=== PATIENT | female | born 1930 | race Caucasian/White ===

== ENCOUNTER 2017-01-01 12:16 | Day surgery (SDC) | payer MEDICARE ==
[2017-01-01] MEDS ORDERED: Acetaminophen 500 MG TAB PO SCH (12:45)
[2017-01-01] MEDS ORDERED: diphenhydrAMINE HCl 25 MG CAP PO SCH (12:45)
[2017-01-01] MEDS ORDERED: Sodium Chloride 0.9% 20 ML ONE (14:34)
[2017-01-01 19:10] VITALS: BP 152/67; TEMP 97.4
[2017-01-01 19:36] LABS: #Eosinphils 0.3 thou/uL (0.0-0.7); #Lymphocytes 1.4 thou/uL (1.20-3.40); #Monocytes 0.6 thou/uL (0.11-0.59); #Neutrophils 4.6 thou/uL (1.40-6.50); %Basophils 0.3 % (0.0-1.0); %Eosinophils 4.2 % (0.0-10.0); %Lymphocytes 19.8 % (21.0-51.0); %Monocytes 8.8 % (0.0-10.0); Hematocrit 34.1 % (36.0-47.0); Mean Platelet Volume 6.2 fL (7.4-10.4); Red Blood Cell (RBC) Count 4.02 mill/uL (4.20-5.40); White Blood Cell (WBC) Count 6.9 thou/uL (4.8-10.8)
[2017-01-01] MEDS ORDERED: FLU VACC TS2017-18 (>65YR) 0.5 ML SYRINGE IM ONE (21:00)
== END 2017-01-01 19:31 | disposition home or self-care (01) ==
LOC: ONC/OP 12:16
PROVIDERS: ATTEND Internal Medicine Hematology & Oncology
PROC: 30233N1 Transfusion of Nonautologous Red Blood Cells into Peripheral Vein, Percutaneous Approach (ICD-10-PCS; principal; 2017-01-01)
DX: D64.9 Anemia, unspecified (principal); D69.6 Thrombocytopenia, unspecified; I12.9 Hypertensive chronic kidney disease with stage 1 through stage 4 chronic kidney disease, or unspecified chronic kidney disease; N18.4 Chronic kidney disease, stage 4 (severe); Z95.828 Presence of other vascular implants and grafts
CPT/HCPCS: 36415; 36430; 85025; 86850; 86900; 86901; A4216; P9016

== ENCOUNTER 2017-03-14 13:18 | Inpatient (IN) | payer MEDICARE ==
[2017-03-14 14:08] LABS: #Eosinphils 0.1 thou/uL (0.0-0.7); #Monocytes 1.1 thou/uL (0.11-0.59); #Neutrophils 15.7 thou/uL (1.40-6.50); %Basophils 0.1 % (0.0-1.0); %Eosinophils 0.5 % (0.0-10.0); %Lymphocytes 5.7 % (21.0-51.0); %Monocytes 6.1 % (0.0-10.0); Hematocrit 32.3 % (36.0-47.0); Mean Platelet Volume 6.5 fL (7.4-10.4); Red Blood Cell (RBC) Count 3.61 mill/uL (4.20-5.40); White Blood Cell (WBC) Count 17.9 thou/uL (4.8-10.8)
[2017-03-14 14:25] LABS: Lactic Acid - Sepsis 2.4 mmol/L (0.5-2.2)
[2017-03-14 14:29] LABS: ALT (SGPT) 17 U/L (8-55); AST (SGOT) 33 U/L (5-34); Alkaline Phosphatase 77 U/L (40-150); Anion Gap 17 mmol/L (10-20); BUN (Urea Nitrogen) 64 mg/dL (9.8-20.1); Bilirubin, Total 0.4 mg/dL (0.2-1.2); Calc. Creatinine Clearance 0 mL/min (70-130); Carbon Dioxide 17 mmol/L (23-31); Chloride 101 mmol/L (98-107); Estimated GFR-MDRD 9; Globulin 4.9 g/dL (2.4-3.5)
[2017-03-14 14:58] LABS: Bilirubin Negative (Negative); Blood, Urine Large (Negative); Glucose, Urine (Dipstick) Negative (Negative); Ketone, Urine Negative (Negative); Nitrite Negative (Negative); Protein, Urine (Dipstick) 100 mg/dL (Neg-Trace); Urobilinogen 0.2 mg/dL (0.2-1.0)
[2017-03-14 15:00] LABS: Bacteria/HPF None Seen HPF (None Seen); Hyaline Casts/LPF 0-3 HYALINE CAST LPF (0-3 Hyaline); RBC/HPF 21-50 HPF (0-3); Squamous Epithelial None Seen HPF (0-3)
[2017-03-14] MEDS ORDERED: Cefepime 2 GM/10 ML SYR ONE (16:36)
[2017-03-14] MEDS ORDERED: cloNIDine 0.1 MG TAB PO PRN (18:29)
[2017-03-14] MEDS ORDERED: Ondansetron ODT 4 MG TAB PO PRN (18:29)
[2017-03-14] MEDS ORDERED: hydrALAZINE 20 MG/ML VIAL SLOW IVP PRN (18:29)
[2017-03-14] MEDS ORDERED: Ondansetron HCl/PF 4 MG/2 ML Vial IVP PRN (18:29)
[2017-03-14] MEDS ORDERED: Vancomycin HCl 1 GM in Premix Bag 1 BAG IVPB SCH (18:30)
--- NOTE | 2017-03-14 19:50 | HP ---
DATE OF ADMISSION: 03/14/2017 PRIMARY CARE PROVIDER: Mariola Francis MD CHIEF COMPLAINT: Urinary tract infection. HISTORY OF PRESENT ILLNESS: This is an 86-year-old female with a significant history of co tyler cancer nonoperatively managed, status post diverting colostomy. The patient was following up wit h her primary oncologist to assess for the need of Epogen when a screening. CBC showed an elevated w marciano count of 19,000. The patient also with a history of recurrent urinary tract infections with uri nalysis showing large leukocyte esterase and greater than 50 to too numerous to count wbc's per high power field. The patient apparently had recently finished a course of ciprofloxacin for pseudomonas urinary tract infection and has been progressively declining with general weakness and lethargy over the last 4-5 days according to the daughter. The patient was noted one urine culture on 02/16/2017 w as greater than 100,000 colonies of pseudomonas aeruginosa, pansensitive. The patient currently resi donaldo with her son in the [place] area, receiving some home health services. The patient is ambu latory with use of a rolling walker, but does need some assistance with meal preparation. The patien t is currently being followed by the Oncology Service for primary invasive adenocarcinoma of the colo n, nonoperatively managed. The patient denies any other change to her chronic medication regimen, si gnificant weight loss, nausea, vomiting, hematuria, or hematemesis. The patient denies any prominent fever, but the daughter reports some subjective fever complaints. No significant history of fall, u nilateral weakness, chest pain or shortness of breath. In the emergency room, the patient underwent general evaluation with urinalysis suspicious for infectious process. Patient received IV vancomycin , Levaquin, and cefepime as well as intravenous normal saline x1 liter. The patient was transferred to the medical floor for further evaluation. PAST MEDICAL HISTORY: 1. 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 2. Stage 4 chronic kidney disease. 3. Chronic anemia secondarily to #1. 4. History of bilateral hydronephrosis secondarily to #1. 5. History of right lower extremity DVT with prior IVC filter placement. 6. History of H. pylori gastritis. 7. Hypothyroidism. 8. History of moderate-protein malnutrition. 9. Deconditioning. PAST SURGICAL HISTORY: 1. Status post diverting colostomy. 2. Status post bilateral cataract removal. 3. Status post skin cancer removal. 4. Status post tonsillectomy. CURRENT MEDICATIONS: 1. Aspirin 325 mg 1 tab p.o. daily. 2. Epogen 7500 units subcutaneously q. 2 weeks. 3. DuoNeb 3 mL nebulized q.6 hours p.r.n. 4. Levothyroxine 25 mcg 1 tab p.o. daily. 5. Multivitamin 1 tab p.o. daily. ALLERGIES: No known drug allergies. FAMILY HISTORY: No inheritable diseases per patient report. SOCIAL HISTORY: Patient resides in [place], [place] with her son. Accompanied by her daughter i [facility]. No current alcohol, tobacco, or illicit drug use. REVIEW OF SYSTEMS: The following complete review of systems was negative, unless otherwise mentioned in the HPI or below: Constitutional: Weight loss or gain, ability to conduct usual activities. Sk in: Rash, itching. Eyes: Double vision, pain. ENT/Mouth: Nose bleeding, neck stiffness, pain, te nderness. Cardiovascular: Palpitations, dyspnea on exertion, orthopnea. Respiratory: Shortness of breath, wheezing, cough, hemoptysis, fever or night sweats. Gastrointestinal: Poor appetite, abdom inal pain, heartburn, nausea, vomiting, constipation, or diarrhea. Genitourinary: Urgency, frequenc y, dysuria, nocturia. Musculoskeletal: Pain, swelling. Neurologic/Psychiatric: Anxiety, depressio n. Allergy/Immunologic: Skin rash, bleeding tendency. PHYSICAL EXAMINATION: VITAL SIGNS: On admission, blood pressure 156/56, respiratory rate 23, temperature 98.1 degrees Fahr enheit, pulse 105, O2 saturation 100% on room air. GENERAL APPEARANCE: This is an 86-year-old female, alert and oriented x3, pleasant, conver elsi, in no acute distress. HEENT: Pupils are equal, round, and reactive to light and accommodation. Extraocular muscles are in tact. No scleral icterus, no conjunctival injection. Nares patent. OP is clear. Oral mucosa dry a ppearing. NECK: Supple. No cervical adenopathy, no thyromegaly, no carotid bruits, no JVD appreciated. Cervi art spine with full active and passive range of motion. CHEST: Lungs are clear to auscultation bilaterally. CARDIOVASCULAR: S1, S2 with a 2/6 systolic ejection murmur, loudest in the right upper sternal borde r. ABDOMEN: Rounded, soft with bowel sounds positive in all 4 quadrants. Colostomy bag in place. No p alpable mass. No rebound or guarding noted. EXTREMITIES: Warm and dry with fair turgor. No clubbing, cyanosis, or asymmetric edema appreciated. Pulses palpable distally at the dorsalis pedis, posterior tibial, and popliteal arteries bilaterall y. Capillary refill less than 2 seconds. NEUROLOGIC: Cranial nerves II through XII are grossly intact. No focal or lateralizing signs apprec iated. PERTINENT LABORATORY AND X-RAY FINDINGS: Sodium 131, potassium 3.9, chloride 101, CO2 of 17, BUN 64, creatinine 4.78 with estimated GFR of 9, glucose 191. Lactic acid level 2.4, calcium 10.0. LFTs wi thin normal limits. Albumin 3.1. CBC showed a white blood cell count of 17.9, hemoglobin 9.8, hemat ocrit 32.3, platelet count 426 with 88% neutrophilia. Urinalysis positive for protein, blood, and la rge leukocyte esterase. Urine microscopy shows 21-50 rbc's per high power field and 50 to too navin us to count wbc's per high power field. EKG dated 03/14/2017 by my interpretation shows sinus tachyc ardia with heart rates in the 110s. Normal R-wave progression noted in the precordial leads. Normal axis. Occasional PVC noted. No acute ST-T wave changes appreciated. ASSESSMENT AND PLAN: 1. Urinary tract infection with systemic inflammatory response syndrome. We will admit to medical f mena. Continue intravenous normal saline at 75 mL per hour. Continue cefepime 1 gram IV daily. Con tinue vancomycin 1 gram IV daily. Continue renal adjustment to all medications given patient's chron ic kidney disease. We will await final blood and urine culture results. 2. Acute kidney injury on chronic kidney disease, stage 4-5. Continue intravenous normal saline as outlined previously. Avoid nephrotoxic agents and contrast media. Repeat creatinine in the a.m. Co ntinue Meyer catheter. 3. Hyponatremia. Suspect secondary to #1. Continue intravenous normal saline as outlined previousl y. Repeat sodium level in the a.m. 4. Lactic acidosis. Mild and secondary to #1. Continue treatment as outlined in #1 and monitor cli nical response. 5. Chronic normocytic anemia. Stable currently. No current evidence to suggest acute blood loss. Repeat CBC in the a.m. 6. Invasive adenocarcinoma of the sigmoid colon. Nonoperative management per patient and family rep ort. Continue symptomatic and supportive care. 7. Hypothyroidism. Resume home regimen of levothyroxine 25 mcg p.o. daily. 8. Prophylaxis. Sequential compression devices while in bed. Pepcid 20 mg p.o. b.i.d. PT evaluati on in the a.m. 9. Code status is FULL. Surrogate medical decision maker is the patient's daughter.
[2017-03-14] MEDS: Sodium Chloride 0.9% 1,000 ML IV SCH (20:29)
[2017-03-14] MEDS: Famotidine 20 MG TAB PO SCH (20:30)
[2017-03-15 04:48] LABS: Hematocrit 29.9 % (36.0-47.0); Mean Platelet Volume 6.5 fL (7.4-10.4); Red Blood Cell (RBC) Count 3.34 mill/uL (4.20-5.40)
[2017-03-15 04:56] LABS: Anion Gap 12 mmol/L (10-20); BUN (Urea Nitrogen) 64 mg/dL (9.8-20.1); Calc. Creatinine Clearance 8 mL/min (70-130); Calcium 9.4 mg/dL (7.8-10.44); Carbon Dioxide 16 mmol/L (23-31); Chloride 106 mmol/L (98-107); Estimated GFR-MDRD 9
[2017-03-15 05:51] LABS: Band 2 % (5-11); Neutrophil 88 % (42-75)
[2017-03-15] MEDS: Levothyroxine Sodium 25 MCG TAB PO SCH (05:56)
[2017-03-15] MEDS ORDERED: FLU VACC TS2017-18 (>65YR) 0.5 ML SYRINGE IM ONE (09:00)
[2017-03-15] MEDS: Famotidine 20 MG TAB PO SCH ×2 (09:52→19:58)
[2017-03-15] MEDS: Sodium Chloride 0.9% 1,000 ML IV SCH (09:52)
[2017-03-15] MEDS: Multivitamin W/ Minerals 1 TAB PO SCH (09:52)
[2017-03-15] MEDS: Aspirin 325 MG TAB PO SCH (09:52)
--- NOTE | 2017-03-15 10:29 | CON ---
DATE OF CONSULTATION: 03/15/2017 REASON FOR CONSULTATION: Elevated creatinine. HISTORY OF PRESENT ILLNESS: This is a very pleasant 86-year-old female who presented to the hospital with a 2-3 day history of low grade fever and UTI and sepsis. The patient was hypertensive and star collins on IV fluids. Her baseline creatinine was in the 3s and increased to 4.83 yesterday from 2.85 in November. The patient denies any nausea, vomiting or chest pain. PAST MEDICAL HISTORY: Significant history of adenocarcinoma of the rectosigmoid, stage 4 chronic kid jarrod disease, acidosis, history of bilateral hydronephrosis, history of DVT, history of hypothyroidis m, history of diverting colostomy, cataract, cancer removal. HOME MEDICATIONS: List reviewed. HOSPITAL MEDICATIONS: Reviewed. ALLERGIES: Reviewed. FAMILY HISTORY: Negative for ESRD. SOCIAL HISTORY: No alcohol or drug use. REVIEW OF SYSTEMS: Fifteen point review of systems was performed and negative except positives noted above. GENERAL: Weakness- HEAD: Headache- NECK: No swelling or lumps. NOSE: No epistaxis or discharge. EYES: No diplopia or pain. RESPIRATORY: Dyspnea- CARDIOVASCULAR: Chest pain- GASTROINTESTINAL: Nausea- /SERVICE CREW LEADER: Hematuria- MUSCULOSKELETAL: No joint pain. NEUROPSYCHIATIC SYSTEMS: No suicidal ideation. No ideation. SKIN: Denies any rash or ulcer. CONSTITUTIONAL: No fever or chills. PHYSICAL EXAMINATION: GENERAL: Patient is awake, alert. VITAL SIGNS: Afebrile, breathing 16, pulse was 120, blood pressure 120/65. OBJECTIVE: See above. Awake, alert, in no acute distress. GENERAL APPEARANCE AND MENTAL STATUS: Fair. HEAD/NECK: Normocephalic. Atraumatic. EYES: EOMI. No deformity. EARS: Clear. No ulcers. NOSE: Intact. No lesions. MOUTH: Clear. No discharge. THROAT: Clear. No exudate. LUNGS: Clear. No crackles. CARDIAC: S1, S2. No rub. ABDOMEN: Benign. BS+. GENITALIA/RECTUM: Meyer absent. BACK/EXTREMITIES: Edema 0+ Ulcer- NEUROLOGICAL: Alert and motor intact. SKIN: Rash- Bruise- LYMPHATICS: Edema- Ulcer- LABORATORY: Potassium 3.4, creatinine 4.5. ASSESSMENT AND RECOMMENDATIONS: 1. Acute kidney injury with chronic kidney disease stage 5, no indication for dialysis. 2. Hypokalemia. Give potassium. 3. Hyponatremia, stable. 4. Metabolic acidosis. Start sodium bicarbonate 650 t.i.d.
--- NOTE | 2017-03-15 13:32 | PQF ---
CLINICAL DOCUMENTATION IMPROVEMENT CLARIFICATION FORM: ICD-10 Updated PLEASE DO AN ADDENDUM TO THE PROGRESS NOTE WITH ANY DOCUMENTATION UPDATES OR ADDITIONS AND CARRY THROUGH TO DC SUMMARY. THANK YOU. DATE: 03/15 ATTN: DR. Bettina RAMIREZ Please exercise your independent, professional judgment in responding to the clarification form. Clinical indicators are provided on the bottom of this form for your review Please check appropriate box(s): [ ] Sepsis due to: (Pna, UTI, gangrenous gall bladder, etc.) [ ] SIRS due to non-infectious process (please specify etiology) [ ] with organ dysfunction [ ] without organ dysfunction [ ] Severe sepsis with acute organ dysfunction of: (Examples: respiratory failure, encephalopathy, acute kidney failure, other) [ ] Localized infection without sepsis [ ] Other diagnosis [ x ] Unable to determine For continuity of documentation, please document condition throughout progress notes and discharge summary. Thank You. CLINICAL INDICATORS - SIGNS / SYMPTOMS / LABS ER PRESENTATION 03/14: T: 100.5 (R) RR: 17-23 HR: 89-105 WBC : 17.9 LACTIC ACID: 2.4 PHYSICIAN H&P DOCUMENTATION 03/14: ASSESSMENT & PLAN: 1. UTI W/SIRS; 2. CHIOMA ON CKD STG 4-5; 4. LACTIC ACIDOSIS URINALYSIS: LARGE LEUKOCYTE ESTERASE, WBC TNTC, NO BACTERIA SEEN RISK FACTORS: RECURRENT UTI'S LEUKOCYTOSIS CHIOMA ADVANCED AGE (86) TREATMENTS: IV ANTIBIOTIC (MAXIPIME 03/14 - PRESENT) IVF (NS 03/14 - PRESENT) NEPHROLOGY CONSULT THANK YOU! Pari (This form is maintained as a part of the permanent medical record) 2014 [employer]. All Rights Reserved Pari Acharya RN, BSN [email or web address] Office: [phone] [facility]
[2017-03-15] MEDS: Cefepime 1 GM, Admixture Fee 1 EACH in Sterile Water 10 ML SLOW IVP SCH (14:44)
[2017-03-15] MEDS ORDERED: Cefepime 1 GM in Sodium Chloride 0.9% 100 ML IVPB SCH (15:00)
--- NOTE | 2017-03-15 17:31 | PDOC.PN ---
- Subjective Encounter Start Date: 03/15/17 Encounter Start Time: 17:25 Subjective: f/u for SIRS and suspected UTI with negative Ucx currently. Receiving -: Cefepime and Vancomycin and feels better today. Appetite improved. -: No N/V/D - Objective Resuscitation Status: Resuscitation Status DNR:Do Not Resuscitate MAR Reviewed: Yes Vital Signs & Weight: Vital Signs (12 hours) Temp Pulse Resp BP Pulse Ox 03/15/17 16:08 97.4 F L 82 12 108/54 L 100 03/15/17 11:21 99.1 F 99 14 100/58 L 100 03/15/17 08:06 98.8 F 122 H 14 120/65 98 03/15/17 08:00 98.8 F 122 H 14 95 03/15/17 05:59 99.2 F Weight Weight 120 lb 3 oz Result Diagrams: 03/15/17 03:44 03/15/17 03:44 Additional Labs: Microbiology 03/14/17 15:03 Venous blood - Right Arm Blood Culture - Preliminary Specimen has been received and culture in progress. No Growth to date. 03/14/17 14:48 Urine Straight Catheter Urine Culture - Preliminary NO GROWTH AT 24 HOURS 03/14/17 13:58 Venous blood - Right Arm Blood Culture - Preliminary Specimen has been received and culture in progress. No Growth to date. Laboratory Tests 03/14/17 03/14/17 03/14/17 13:51 13:51 13:51 WBC 17.9 H Hgb 9.8 L Plt Count 426 H Sodium 131 L Potassium 3.9 Creatinine 4.78 H Lactic Acid 2.4 H 03/14/17 17:58 WBC Hgb Plt Count Sodium Potassium Creatinine Lactic Acid 1.1 Phys Exam - Physical Examination Constitutional: NAD HEENT: PERRLA, oral pharynx no lesions Neck: no JVD, supple Respiratory: no wheezing, clear to auscultation bilateral Cardiovascular: RRR Colostomy in place Gastrointestinal: soft, non-tender, no distention, positive bowel sounds Musculoskeletal: no edema, pulses present Neurological: normal sensation, moves all 4 limbs Skin: normal turgor, cap refill <2 seconds Dx/Plan (1) SIRS (systemic inflammatory response syndrome) Code(s): R65.10 - SIRS OF NON-INFECTIOUS ORIGIN W/O ACUTE ORGAN DYSFUNCTION Status: Acute Comment: Continue supportive mgmt with IV Cefepime, Vancomycin, follow cx results (2) Acute worsening of stage 4 chronic kidney disease Code(s): N28.9 - DISORDER OF KIDNEY AND URETER, UNSPECIFIED; N18.4 - CHRONIC KIDNEY DISEASE, STAGE 4 (SEVERE) Status: Acute Comment: Continue IV NS 75ml/ h, avoid nephrotoxic meds and contrast, repeat creatinine in am (3) Adenocarcinoma, colon Code(s): C18.9 - MALIGNANT NEOPLASM OF COLON, UNSPECIFIED Status: Chronic Comment: Non-operative mgmt, diverting colostomy performed (4) Hypokalemia Code(s): E87.6 - HYPOKALEMIA Status: Acute Comment: KCL 40meq BID, repeat K + level in am (5) S/P colostomy Code(s): Z93.3 - COLOSTOMY STATUS Status: Acute Comment: s/p diverting colostomy for sigmoid adenocarcinoma (6) Anxiety and depression Code(s): F41.9 - ANXIETY DISORDER, UNSPECIFIED; F32.9 - MAJOR DEPRESSIVE DISORDER, SINGLE EPISODE, UNSPECIFIED Status: Chronic - Plan plan discussed w/ family, continue antibiotics, PT/OT, socially responsible investment adviser, out of bed/ambulate, DVT proph w/SCDs Stable overall -: Continue IVF NS -: KCL 40meq BID -: Continue Cefepime and Vancomycin renally dosed -: Palliative care consult appreciated * AM lab: BMP, CBC * Code status: DNR
[2017-03-15] MEDS ORDERED: Potassium Chloride 20 MEQ TAB PO SCH (18:00)
[2017-03-16] MEDS: Sodium Chloride 0.9% 1,000 ML IV SCH ×2 (00:16→17:51)
[2017-03-16] MEDS: Levothyroxine Sodium 25 MCG TAB PO SCH (05:31)
[2017-03-16 05:44] LABS: Anion Gap 13 mmol/L (10-20); BUN (Urea Nitrogen) 63 mg/dL (9.8-20.1); Calc. Creatinine Clearance 8 mL/min (70-130); Carbon Dioxide 13 mmol/L (23-31); Chloride 111 mmol/L (98-107); Estimated GFR-MDRD 9
[2017-03-16 06:45] LABS: Band 2 % (5-11); Hematocrit 27.9 % (36.0-47.0); Mean Platelet Volume 6.5 fL (7.4-10.4); Neutrophil 87 % (42-75); Red Blood Cell (RBC) Count 3.14 mill/uL (4.20-5.40); White Blood Cell (WBC) Count 18.4 thou/uL (4.8-10.8)
[2017-03-16] MEDS ORDERED: Potassium Chloride 20 MEQ TAB PO SCH (08:00)
[2017-03-16] MEDS: Multivitamin W/ Minerals 1 TAB PO SCH (08:27)
[2017-03-16] MEDS: Aspirin 325 MG TAB PO SCH (08:27)
[2017-03-16] MEDS: Famotidine 20 MG TAB PO SCH ×2 (08:27→19:57)
[2017-03-16] MEDS: Cefepime 1 GM, Admixture Fee 1 EACH in Sterile Water 10 ML SLOW IVP SCH (15:50)
[2017-03-16] MEDS ORDERED: Sodium Bicarbonate Tab 325 MG TAB PO SCH (16:15)
--- NOTE | 2017-03-16 16:40 | PDOC.PN ---
- Subjective Encounter Start Date: 03/16/17 Encounter Start Time: 16:38 Pt seen for followup re; generalized weakness. Feels weak, slightly better today. No chest pain, shortness of breath. - Objective Resuscitation Status: Resuscitation Status DNR:Do Not Resuscitate MAR Reviewed: Yes Vital Signs & Weight: Vital Signs (12 hours) Temp Pulse Resp BP Pulse Ox 03/16/17 12:49 97.8 F 84 18 122/58 L 99 03/16/17 08:09 98.2 F 108 H 20 122/58 L 99 03/16/17 08:00 98.2 F 108 H 20 98 Weight Weight 120 lb 3 oz I&O: 03/15/17 03/16/17 03/17/17 06:59 06:59 06:59 Intake Total 3200 Balance 3200 Result Diagrams: 03/16/17 04:32 03/16/17 04:32 Phys Exam - Physical Examination Constitutional: NAD HEENT: moist MMs Neck: supple Respiratory: clear to auscultation bilateral Cardiovascular: RRR Gastrointestinal: soft, positive bowel sounds ostomy bag+ Neurological: moves all 4 limbs Psychiatric: normal affect Dx/Plan (1) Generalized weakness Code(s): R53.1 - WEAKNESS Status: Acute (2) SIRS (systemic inflammatory response syndrome) Code(s): R65.10 - SIRS OF NON-INFECTIOUS ORIGIN W/O ACUTE ORGAN DYSFUNCTION Status: Acute Comment: Continue supportive mgmt with IV Cefepime, Vancomycin, follow cx results (3) Acute worsening of stage 4 chronic kidney disease Code(s): N28.9 - DISORDER OF KIDNEY AND URETER, UNSPECIFIED; N18.4 - CHRONIC KIDNEY DISEASE, STAGE 4 (SEVERE) Status: Acute Comment: Continue IV NS 75ml/ h, avoid nephrotoxic meds and contrast, repeat creatinine in am (4) Adenocarcinoma, colon Code(s): C18.9 - MALIGNANT NEOPLASM OF COLON, UNSPECIFIED Status: Chronic Comment: Non-operative mgmt, diverting colostomy performed (5) H/O deep venous thrombosis Code(s): Z86.718 - PERSONAL HISTORY OF OTHER VENOUS THROMBOSIS AND EMBOLISM Status: Chronic Comment: current right LE dvt with prior ivc filter (6) Hypothyroidism Code(s): E03.9 - HYPOTHYROIDISM, UNSPECIFIED Status: Chronic Qualifiers: Hypothyroidism type: unspecified Qualified Code(s): E03.9 - Hypothyroidism , unspecified (7) UTI (urinary tract infection) Status: Ruled-out Qualifiers: Urinary tract infection type: acute cystitis Hematuria presence: without hematuria Qualified Code(s): N30.00 - Acute cystitis without hematuria - Plan plan discussed w/ family, continue antibiotics, PT/OT, out of bed/ambulate, DVT proph w/SCDs * . Stop IV fluids, potassium replacement. Start bicarbonate. Final urine culture: no growth. Await blood cultures. Review of Systems - Review of Systems Constitutional: weakness Respiratory: negative: Cough, Dry, Shortness of Breath, Hemoptysis, SOB with Excertion, Pleuritic Pain, Sputum, Wheezing Cardiovascular: negative: chest pain, palpitations, orthopnea, paroxysmal nocturnal dyspnea, edema, light headedness - Medications/Allergies Allergies/Adverse Reactions: Allergies Allergy/AdvReac Type Severity Reaction Status Date / Time No Known Allergies Allergy Verified 03/14/17 21:35 Medications: Current Medications Acetaminophen (Tylenol) 1,000 mg PO Q6H PRN PRN Reason: Headache/Fever or Mild Pain Albuterol/Ipratropium (Duoneb) 3 ml NEB [id number] PRN PRN Reason: SOB &/or Wheezing Aspirin (Aspirin) 325 mg PO DAILY [facility] Last Admin: 03/16/17 08:27 Dose: 325 mg Calcium Carbonate (Tums) 1,000 mg PO TID SURENDRA Clonidine (Catapres) 0.1 mg PO Q4H PRN PRN Reason: Systolic BP > 180 Famotidine (Pepcid) 20 mg PO BID [facility] Last Admin: 03/16/17 08:27 Dose: 20 mg Hydralazine HCl (Apresoline) 10 mg SLOW IVP Q4H PRN PRN Reason: Systolic BP > 180 Cefepime HCl 1 gm/Miscellaneous Medication 1 each/ Sterile Water 10 mls @ 120 mls/hr SLOW IVP 1500 [facility] Last Admin: 03/16/17 15:50 Dose: 10 mls Iron/Minerals/Multivitamins (Theragran M) 1 tab PO DAILY [facility] Last Admin: 03/16/17 08:27 Dose: 1 tab Levothyroxine Sodium (Synthroid) 25 mcg PO 0600 [facility] Last Admin: 03/16/17 05:31 Dose: 25 mcg Ondansetron HCl (Zofran Odt) 4 mg PO Q6H PRN PRN Reason: Nausea/Vomiting Ondansetron HCl (Zofran) 4 mg IVP Q6H PRN PRN Reason: Nausea/Vomiting Sodium Bicarbonate (Bicarbonate, Sodium) 650 mg PO TID SURENDRA Sodium Bicarbonate (Bicarbonate, Sodium) 650 mg PO NOW SURENDRA Stop: 03/16/17 18:15
[2017-03-16] MEDS: Calcium Carbonate 500 MG ChewTAB PO SCH (19:57)
[2017-03-16] MEDS: Sodium Bicarbonate Tab 325 MG TAB PO SCH (19:58)
[2017-03-16] MEDS: Acetaminophen 500 MG TAB PO PRN (21:35)
--- NOTE | 2017-03-16 21:36 | PRG ---
DATE OF SERVICE: 03/16/2017 SUBJECTIVE: Patient was seen and examined at bedside and overnight events noted. Patient denies any shortness of breath or chest pain or palpitation. No history of nausea or vomiting or diarrhea or f ever or chills or cramps. OBJECTIVE: GENERAL: This is an elderly female, in no apparent distress. VITAL SIGNS: Temperature 98.7, pulse 92, respiratory rate 18, blood /63. HEENT: Atraumatic, normocephalic, Oral mucosa is moist. NECK: Supple. CARDIOVASCULAR: S1, S2 heard, rate and rhythm regular. RESPIRATORY: Clear to auscultation. GASTROINTESTINAL: Abdomen is soft. MUSCULOSKELETAL: No tenderness, no edema. DERMATOLOGIC: No skin rash. NEUROLOGIC: Alert and awake and oriented x3. No focal neurologic deficits. Moving all the extremit ies. PSYCHIATRIC: Mood and affect normal. LABORATORY DATA: Potassium is 3.8, sodium is 133, BUN is 63, creatinine is 4.4. ASSESSMENT AND PLAN: 1. Acute kidney injury on chronic kidney disease, stage 5. No acute indication for dialysis. 2. Hypokalemia, potassium supplements. 3. Acidosis. We will start her on oral bicarbonate. 4. Hyponatremia. 5. We will stop IV fluids, start on oral sodium bicarbonate. If the renal function not better, migh t need renal replacement, frequent urinary tract infection, urine culture is negative. We will follow renal function closely.
[2017-03-17] MEDS: Levothyroxine Sodium 25 MCG TAB PO SCH (05:39)
[2017-03-17] MEDS: Acetaminophen 500 MG TAB PO PRN (08:21)
[2017-03-17] MEDS ORDERED: HYDROcodone/Acetaminophen 5/325 mg Tablet PO PRN (09:26)
--- NOTE | 2017-03-17 09:35 | PDOC.PN ---
- Subjective Encounter Start Date: 03/17/17 Encounter Start Time: 09:00 Subjective: f/u for CHIOMA/CKD due to sigmoid adenocarcinoma inoperable and eroding into -: the left ureter. c/o abd pain LLQ improved with Tylenol. Generally weak and -: appetite depressed. No N/V. Colostomy output appropriate. - Objective Resuscitation Status: Resuscitation Status DNR:Do Not Resuscitate MAR Reviewed: Yes Vital Signs & Weight: Vital Signs (12 hours) Temp Pulse Resp BP Pulse Ox 03/17/17 08:00 97.5 F L 100 16 111/55 L 100 Weight Weight 120 lb 3 oz I&O: 03/16/17 03/17/17 03/18/17 06:59 06:59 06:59 Intake Total 3200 1480 Balance 3200 1480 Result Diagrams: 03/16/17 04:32 03/16/17 04:32 Phys Exam - Physical Examination Constitutional: NAD HEENT: PERRLA, oral pharynx no lesions Neck: no nodes, no JVD Respiratory: no wheezing, clear to auscultation bilateral Cardiovascular: RRR protuberant, colostomy in place with brown stool Gastrointestinal: soft, non-tender, positive bowel sounds Musculoskeletal: no edema, pulses present Neurological: normal sensation, moves all 4 limbs Skin: normal turgor, cap refill <2 seconds Dx/Plan (1) SIRS (systemic inflammatory response syndrome) Code(s): R65.10 - SIRS OF NON-INFECTIOUS ORIGIN W/O ACUTE ORGAN DYSFUNCTION Status: Acute Comment: Continue supportive mgmt with IV Cefepime, likely leukocytosis related to tumor burden as blood/urine cx negative (2) Acute worsening of stage 4 chronic kidney disease Code(s): N28.9 - DISORDER OF KIDNEY AND URETER, UNSPECIFIED; N18.4 - CHRONIC KIDNEY DISEASE, STAGE 4 (SEVERE) Status: Acute Comment: Secondary to tumor erosion with obstruction, avoid nephrotoxic meds and contrast, repeat creatinine in am (3) Adenocarcinoma, colon Code(s): C18.9 - MALIGNANT NEOPLASM OF COLON, UNSPECIFIED Status: Chronic Comment: Non-operative mgmt, diverting colostomy performed, repeat CT abd/pelv to assess progression (4) Hypokalemia Code(s): E87.6 - HYPOKALEMIA Status: Acute Comment: KCL 40meq BID, repeat K + level in am (5) S/P colostomy Code(s): Z93.3 - COLOSTOMY STATUS Status: Acute Comment: s/p diverting colostomy for sigmoid adenocarcinoma (6) Anxiety and depression Code(s): F41.9 - ANXIETY DISORDER, UNSPECIFIED; F32.9 - MAJOR DEPRESSIVE DISORDER, SINGLE EPISODE, UNSPECIFIED Status: Chronic - Plan plan discussed w/ family, continue antibiotics, PT/OT, child welfare social worker, out of bed/ambulate, DVT proph w/SCDs Supportive mgmt -: Palliative care consult for dispo planning -: Lando 5/325mg po q6h prn -: Repeat CT abd/pel today -: Sodium bicarbonate 650mg TID * AM lab: CMP, CBC
[2017-03-17] MEDS: Calcium Carbonate 500 MG ChewTAB PO SCH ×3 (09:40→21:00)
[2017-03-17] MEDS: Sodium Bicarbonate Tab 325 MG TAB PO SCH ×3 (09:41→21:01)
[2017-03-17] MEDS: Famotidine 20 MG TAB PO SCH ×2 (09:41→21:01)
[2017-03-17] MEDS: Multivitamin W/ Minerals 1 TAB PO SCH (09:42)
[2017-03-17] MEDS: Aspirin 325 MG TAB PO SCH (09:42)
[2017-03-17 10:14] LABS: Anion Gap 14 mmol/L (10-20); BUN (Urea Nitrogen) 61 mg/dL (9.8-20.1); Calc. Creatinine Clearance 7 mL/min (70-130); Calcium 9.2 mg/dL (7.8-10.44); Carbon Dioxide 13 mmol/L (23-31); Chloride 109 mmol/L (98-107); Estimated GFR-MDRD 9
--- NOTE | 2017-03-17 13:27 | CT ---
CT ABDOMEN AND PELVIS WITHOUT CONTRAST: Date: 03/17/17 HISTORY: Sigmoid adenocarcinoma. Status post colostomy. COMPARISON: Abdomen and pelvic CT dated 07/30/16. CT abdomen and pelvis dated 07/19/16. FINDINGS: There is a nodule in the right lung base measuring 12.0 mm, similar to the 07/19/16 examination. Smal l right pleural effusion. This is also similar to the prior examination. There is severe bilateral hydroureteronephrosis. There is anterior displacement of the urinary bladde r. There is a large mass near the expected location of Sophie's pouch. Pessary device is in place. IVC filter is in place. There is a left anterior abdominal wall colostomy with parastomal herniation of small bowel. Noncontrast evaluation of the spleen and pancreas unremarkable. Evaluation for liver metastasis is li mited without intravenous contrast. There is abnormal thickening of the posterior wall of the urinary bladder, possibly due to invasion o f the lateral wall by malignancy. IMPRESSION: 1. From the 07/19/16 examination, the bilateral hydroureteronephrosis has progressed. This is now se dana bilateral hydroureteronephrosis, although there is renal cortical thinning suggesting chronicity . 2. Likely extensive malignancy of the pelvis at the expected location of the Sophie's pouch with e xtensive soft tissue. There appears to be invasion of the left pelvic side wall, as well as the left iliac vasculature and possibly posterior wall of the urinary bladder. There is anterior displacement of the urinary bladder. 3. Small to moderate pleural effusions bilaterally, as well as a 12.0 mm nodule in the right lung ba se, as well as smaller adjacent nodules, could be metastatic in nature. CODE T. POS: [facility]
[2017-03-17] MEDS: Cefepime 1 GM, Admixture Fee 1 EACH in Sterile Water 10 ML SLOW IVP SCH (14:45)
--- NOTE | 2017-03-17 20:23 | PRG ---
DATE OF SERVICE: 03/18/2017 SUBJECTIVE: Patient was seen and examined at bedside and overnight events noted. Patient denies any shortness of breath or chest pain or palpitation. No history of nausea or vomiting or diarrhea or f ever or chills or cramps. OBJECTIVE: GENERAL: This is an elderly female in no apparent distress. VITAL SIGNS: Temperature 97.7, pulse 84, respiratory rate 14, blood pressure 97/52. HEENT: Atraumatic, normocephalic. Oral mucosa is moist. NECK: Supple. CARDIOVASCULAR: S1, S2 heard. Rate and rhythm regular. RESPIRATORY: Clear to auscultation. GASTROINTESTINAL: Abdomen is soft. MUSCULOSKELETAL: No tenderness. No edema. DERMATOLOGIC: No skin rash. NEUROLOGIC: Alert and awake and oriented x3. No focal neurologic deficits. Moving all the extremiti es. PSYCHIATRIC: Mood and affect normal. LABORATORY DATA: Potassium is 3.8, BUN is 61, and creatinine is 4.68. ASSESSMENT AND PLAN: 1. Chronic kidney disease stage 5, most likely worsening of her baseline kidney function. Her renal function has been stable with glomerular filtration rate of 9 for last few days. 2. Metastatic worsening malignancy, follow up with other specialist. Prognosis seems to be poor. 3. Hypokalemia. Replace and monitor. 4. Acidosis. Continue oral bicarbonate. 5. Hyponatremia. The patient's renal function seems to have worsened with baseline and is here today for dialysis, but most likely a poor candidate for dialysis. We will consider discussion with family about the progno sis and need for dialysis in the near future. No acute indication for dialysis. We will continue bi carbonate.
[2017-03-18 04:53] LABS: ALT (SGPT) 17 U/L (8-55); AST (SGOT) 22 U/L (5-34); Alkaline Phosphatase 81 U/L (40-150); Anion Gap 15 mmol/L (10-20); BUN (Urea Nitrogen) 62 mg/dL (9.8-20.1); Bilirubin, Total 0.3 mg/dL (0.2-1.2); Calc. Creatinine Clearance 7 mL/min (70-130); Calcium 9.8 mg/dL (7.8-10.44); Carbon Dioxide 15 mmol/L (23-31); Chloride 108 mmol/L (98-107); Estimated GFR-MDRD 9; Globulin 3.9 g/dL (2.4-3.5); Protein, Total 6.4 g/dL (6.0-8.3)
[2017-03-18 05:36] LABS: Band 4 % (5-11); Hematocrit 28.9 % (36.0-47.0); Mean Platelet Volume 6.3 fL (7.4-10.4); Neutrophil 84 % (42-75); Red Blood Cell (RBC) Count 3.23 mill/uL (4.20-5.40); White Blood Cell (WBC) Count 18.3 thou/uL (4.8-10.8)
[2017-03-18] MEDS: Levothyroxine Sodium 25 MCG TAB PO SCH (06:41)
[2017-03-18] MEDS: Sodium Bicarbonate Tab 325 MG TAB PO SCH ×3 (09:04→20:18)
[2017-03-18] MEDS: Famotidine 20 MG TAB PO SCH ×2 (09:04→20:18)
[2017-03-18] MEDS: Aspirin 325 MG TAB PO SCH (09:04)
[2017-03-18] MEDS: Calcium Carbonate 500 MG ChewTAB PO SCH ×3 (09:04→20:18)
[2017-03-18] MEDS: Multivitamin W/ Minerals 1 TAB PO SCH (09:04)
[2017-03-18] MEDS: Acetaminophen 500 MG TAB PO PRN (09:11)
--- NOTE | 2017-03-18 11:11 | PDOC.PN ---
- Subjective Encounter Start Date: 03/18/17 Encounter Start Time: 10:40 Subjective: f/u for sigmoid adenocarcinoma progressing on CT imaging with likely -: hepatic metastasis. Pain controlled currently with Tylenol. Colostomy -: output ok. - Objective Resuscitation Status: Resuscitation Status DNR:Do Not Resuscitate MAR Reviewed: Yes Vital Signs & Weight: Vital Signs (12 hours) Temp Pulse Resp BP Pulse Ox 03/18/17 08:45 98.8 F 99 18 108/57 L 105 H 03/18/17 08:00 98.8 F 99 18 100 Weight Weight 120 lb 3 oz I&O: 03/17/17 03/18/17 03/19/17 06:59 06:59 06:59 Intake Total 1480 1240 Output Total 500 Balance 1480 740 Result Diagrams: 03/18/17 04:03 03/18/17 04:03 Additional Labs: Microbiology 03/14/17 14:48 Urine Straight Catheter Urine Culture - Final NO GROWTH AT 48 HOURS 03/14/17 15:03 Venous blood - Right Arm Blood Culture - Preliminary Specimen has been received and culture in progress. No Growth to date. 03/14/17 15:03 Venous blood - Right Arm Blood Culture - Preliminary NO GROWTH AT 48 HOURS 03/14/17 14:48 Urine Straight Catheter Urine Culture - Preliminary NO GROWTH AT 24 HOURS 03/14/17 13:58 Venous blood - Right Arm Blood Culture - Preliminary Specimen has been received and culture in progress. No Growth to date. 03/14/17 13:58 Venous blood - Right Arm Blood Culture - Preliminary NO GROWTH AT 48 HOURS Laboratory Tests 03/14/17 03/14/17 03/14/17 13:51 13:51 13:51 WBC 17.9 H Hgb 9.8 L Plt Count 426 H Sodium 131 L Potassium 3.9 Creatinine 4.78 H Lactic Acid 2.4 H 03/14/17 17:58 WBC Hgb Plt Count Sodium Potassium Creatinine Lactic Acid 1.1 Radiology Reviewed by me: Yes (CT abd/pel - progression of sigmoid ca, severe hydronephrosis, bladder inva) Phys Exam - Physical Examination Constitutional: NAD HEENT: PERRLA, oral pharynx no lesions Neck: no JVD, supple Respiratory: no wheezing Cardiovascular: RRR colostomy intact with brown, liquid stool Gastrointestinal: soft, non-tender, positive bowel sounds Musculoskeletal: no edema, pulses present Neurological: normal sensation, moves all 4 limbs Skin: normal turgor, cap refill <2 seconds Dx/Plan (1) SIRS (systemic inflammatory response syndrome) Code(s): R65.10 - SIRS OF NON-INFECTIOUS ORIGIN W/O ACUTE ORGAN DYSFUNCTION Status: Acute Comment: Continue supportive mgmt with IV Cefepime, likely leukocytosis related to tumor burden as blood/urine cx negative (2) Acute worsening of stage 4 chronic kidney disease Code(s): N28.9 - DISORDER OF KIDNEY AND URETER, UNSPECIFIED; N18.4 - CHRONIC KIDNEY DISEASE, STAGE 4 (SEVERE) Status: Acute Comment: Secondary to tumor erosion with obstruction, avoid nephrotoxic meds and contrast, repeat creatinine in am (3) Adenocarcinoma, colon Code(s): C18.9 - MALIGNANT NEOPLASM OF COLON, UNSPECIFIED Status: Chronic Comment: Non-operative mgmt, diverting colostomy performed, repeat CT abd/pelv confirming progression with likely hepatic mets (4) Hypokalemia Code(s): E87.6 - HYPOKALEMIA Status: Acute Comment: KCL 40meq BID, repeat K + level in am (5) S/P colostomy Code(s): Z93.3 - COLOSTOMY STATUS Status: Acute Comment: s/p diverting colostomy for sigmoid adenocarcinoma (6) Anxiety and depression Code(s): F41.9 - ANXIETY DISORDER, UNSPECIFIED; F32.9 - MAJOR DEPRESSIVE DISORDER, SINGLE EPISODE, UNSPECIFIED Status: Chronic - Plan plan discussed w/ family, continue antibiotics, social sciences research scientist, out of bed/ ambulate, DVT proph w/SCDs Stable currently -: Pain control as indicated -: Palliative care consult, ? home with hospice -: Start Omnicef 300mg daily -: Plan for d/c in am 03/19/17 * Updated family of clinical situation and progressive disease, recommend Palliative measures, no hemodialysis and symptom control. Likely will consider Hospice after d/c
[2017-03-18] MEDS ORDERED: Cefdinir 300 MG CAP PO SCH (12:00)
[2017-03-18] MEDS ORDERED: Carvedilol 6.25 MG TAB PO SCH (12:00)
[2017-03-18] MEDS ORDERED: Potassium Chloride 20 MEQ TAB PO SCH (12:30)
--- NOTE | 2017-03-18 23:26 | PRG ---
DATE OF SERVICE: 03/18/2017 SUBJECTIVE: Patient was seen and examined at bedside and overnight events noted. Patient denies any shortness of breath or chest pain or palpitation. No history of nausea or vomiting or diarrhea or fever or chills or cramps. OBJECTIVE: GENERAL: This is a well-built elderly female in no apparent distress. VITAL SIGNS: Temperature 98.3, pulse 80, respiratory rate 16, blood pressure 149/57. HEENT: Atraumatic, normocephalic. Oral mucosa is moist. NECK: Supple. CARDIOVASCULAR: S1, S2 heard. Rate and rhythm regular. RESPIRATORY: Clear to auscultation. GASTROINTESTINAL: Abdomen is soft. MUSCULOSKELETAL: No tenderness. No edema. DERMATOLOGIC: No skin rash. NEUROLOGIC: Alert and awake and oriented x3. No focal neurologic deficits. Moving all the extremities. PSYCHIATRIC: Mood and affect normal. LABORATORY DATA: Potassium is 3.4, BUN is 62, creatinine is 4.7. ASSESSMENT AND PLAN: 1. Chronic kidney disease stage 5, renal function is stable, no acute indications for dialysis. Family is thinking about dialysis. Patient might need dialysis in the near future, but I am not sure if she will be a good candidate for dialysis, given the metastatic advancing cancer. Family is still debating about the future decision. 2. Metastatic malignancy. 3. Hypokalemia, replaced. 4. Acidosis. 5. Hyponatremia. 6. No acute indications for dialysis. No urgent need for dialysis, family counseled on the process of dialysis and answered all the questions. We will follow. [facility]ITAL[facility]
[2017-03-19] MEDS: Acetaminophen 500 MG TAB PO PRN (01:14)
[2017-03-19] MEDS: Levothyroxine Sodium 25 MCG TAB PO SCH (06:07)
[2017-03-19 07:52] VITALS: BP 126/59; TEMP 97.7
[2017-03-19] MEDS ORDERED: Cefdinir 300 MG CAP PO SCH (09:00)
[2017-03-19] MEDS: Sodium Bicarbonate Tab 325 MG TAB PO SCH (09:35)
[2017-03-19] MEDS: Calcium Carbonate 500 MG ChewTAB PO SCH ×2 (09:35→11:51)
[2017-03-19] MEDS: Aspirin 325 MG TAB PO SCH (09:35)
[2017-03-19] MEDS: Famotidine 20 MG TAB PO SCH (09:36)
[2017-03-19] MEDS: Multivitamin W/ Minerals 1 TAB PO SCH (09:36)
--- NOTE | 2017-03-19 10:26 | PRG ---
DATE OF SERVICE: 03/19/2017 SUBJECTIVE: Patient was seen and examined at bedside and overnight events noted. Patient denies any shortness of breath or chest pain or palpitation. No history of nausea or vomiting or diarrhea or f ever or chills or cramps. OBJECTIVE: GENERAL: This is a thin built female in no apparent distress. VITAL SIGNS: Temperature 97.7, pulse 70, respiratory rate 18, blood pressure 126/59. HEENT: Atraumatic, normocephalic. Oral mucosa is moist. NECK: Supple. CARDIOVASCULAR: S1, S2 heard. Rate and rhythm regular. RESPIRATORY: Clear to auscultation. GASTROINTESTINAL: Abdomen is soft. MUSCULOSKELETAL: No tenderness. No edema. DERMATOLOGIC: No skin rash. NEUROLOGIC: Alert and awake and oriented x3. No focal neurologic deficits. Moving all the extremiti es. PSYCHIATRIC: Mood and affect normal. LABORATORY DATA: Potassium is 3.4, BUN 62, creatinine is 4.7. ASSESSMENT AND PLAN: 1. Chronic kidney disease stage 5, with advancing cancer, no acute indication for dialysis. The [facility] was advised to follow with Dr. Contreras as outpatient for further decision on renal dysfunction. 2. Metastatic cancer. 3. Hypokalemia. 4. Acidosis on sodium bicarbonate. 5. Hyponatremia. Overall prognosis is poor. Family is still undecided on dialysis. The patient remains very poor can didate for dialysis. All the questions answered and family and patient was counseled on the procedur e of dialysis and the process involved. Advised to follow up with Dr. Contreras as outpatient in 1-2 week s.
--- NOTE | 2017-03-19 19:40 | DIS ---
DATE OF ADMISSION: 03/14/2017 DATE OF DISCHARGE: 03/19/2017 DISCHARGE DIAGNOSES: 1. Sigmoid adenocarcinoma with metastasis, progressive. 2. Systemic inflammatory response syndrome, resolved. 3. Acute kidney injury on chronic kidney disease stage 4 secondary to #1. 4. Hypokalemia, improved. 5. Status post diverting colostomy, stable. 6. Anxiety/depression. CONSULTATIONS: Dr. June Viera and Dr. Contreras with Nephrology Service. PERTINENT LABORATORY AND X-RAY FINDINGS: Sodium ranged between 131-135, creatinine ranged between 4. 45-4.83 with estimated GFR of 9. Lactic acid level 1.1, calcium 9.8. LFTs within normal limits. CB C showed a white blood cell count ranging between 17.00-18.4. Hemoglobin ranged between 8.6-9.8. Bl ood cultures x2 from 03/14/2017 showed no growth at 48 hours. Urine culture dated 03/14/2017 showed no growth at [address] of the abdomen and pelvis dated 03/17/2017 showed severe bilateral hydrour eteronephrosis progressive. Sigmoid adenocarcinoma with invasion of the left pelvic sidewall and lef t iliac vasculature with extension into the posterior wall of the urinary bladder. A 12 mm nodule in the right lung base and likely metastatic. HOSPITAL COURSE: The patient was admitted to the oncology unit after initially presenting with eleva collins white blood cell count and concern for recurrent urinary tract infection. The patient was placed on broad spectrum IV antibiotic therapy after a recent course of antibiotic therapy for ciprofloxaci n for suspected Pseudomonas urinary tract infection. The patient was evaluated with urine culture sh owing a negative findings as well as negative blood cultures x2. The patient was placed on IV vancom ycin, Levaquin, and cefepime and given intravenous normal saline. The patient was noted with persist ent leukocytosis after broad spectrum IV antibiotic coverage, this prompting a repeat evaluation of t he abdomen and pelvis, given history of sigmoid adenocarcinoma. Findings were consistent with progre ssion of adenocarcinoma with invasion of the left pelvic sidewall and posterior aspect of the bladder . Imaging of the lower lung base showed possible metastatic process. Due to patient's progression, symptomatic and supportive measures were recommended. The patient's pain control was on minimal, dos es of Tylenol and required intermittent dosing of [place] or tramadol for brief episodes of increasing pain. Discussions were with the family regarding progression of the adenocarcinoma with recommendati ons for general supportive measures and symptomatic management. The patient was not deemed an approp riate candidate for consideration of hemodialysis in the context of worsening renal function due to t he stage IV adenocarcinoma. Overall, the patient clinically stable, tolerating regular oral intake, ambulating with mild assistance and ready for discharge on 03/19/2017. DISCHARGE MEDICATIONS: 1. Omnicef 300 mg 1 tab p.o. daily. 2. Enteric coated aspirin 81 mg 1 tab p.o. daily. 3. Calcium carbonate 1000 mg p.o. t.i.d. 4. Vitamin D3 2000 units p.o. daily. 5. Levothyroxine 25 mcg 1 tab p.o. daily. 6. Multivitamin 1 tab p.o. daily. 7. Sodium bicarbonate 650 mg p.o. t.i.d. with meals. 8. Tramadol 50 mg p.o. q.i.d. p.r.n. pain. FOLLOWUP: The patient may follow up with her primary care provider, Dr. Mariola Francis within 7 days of discharge. SPECIAL INSTRUCTIONS: The patient will receive home health services through [facility] on dis charge. Consideration for palliative and hospice care at the convenience of the family and patient. CONDITION ON DISCHARGE: Guarded. ACTIVITY: Ad pennie. DIET: Regular. CODE STATUS: Do not resuscitate. DISPOSITION: Home with [facility] on 03/19/2017. Total time preparing and coordinating discharge is 34 minutes.
--- NOTE | 2017-03-23 10:00 | EKG ---
Test Reason : Blood Pressure : / mmHG Vent. Rate : 117 BPM Atrial Rate : 117 BPM P-R Int : 180 ms QRS Dur : 092 ms QT Int : 310 ms P-R-T Axes : 053 079 021 degrees QTc Int : 432 ms Sinus tachycardia with frequent Premature ventricular complexes Otherwise normal ECG Confirmed by JOSUE RINCON, CORAL Graf ([id number]), electronic news gathering editor GEOVANI MUIR ([id number]) on 03/23/2017 10:00:08 AM Referred By: Confirmed By:CORAL SALAS MD
== END 2017-03-19 16:05 | disposition home health service (06) | DRG 375 ==
LOC: ERS 13:18 → ONC 15:18
PROVIDERS: ADMIT Family Medicine; ATTEND Family Medicine
DX: C18.7 Malignant neoplasm of sigmoid colon (principal); C78.01 Secondary malignant neoplasm of right lung; N17.9 Acute kidney failure, unspecified; C79.11 Secondary malignant neoplasm of bladder; C79.89 Secondary malignant neoplasm of other specified sites; R65.10 Systemic inflammatory response syndrome (SIRS) of non-infectious origin without acute organ dysfunction; E87.2 Acidosis; N13.30 Unspecified hydronephrosis; N18.5 Chronic kidney disease, stage 5; E87.1 Hypo-osmolality and hyponatremia; D63.1 Anemia in chronic kidney disease; E87.6 Hypokalemia; Z93.3 Colostomy status; F41.8 Other specified anxiety disorders; Z66 Do not resuscitate; Z86.718 Personal history of other venous thrombosis and embolism; Z98.42 Cataract extraction status, left eye; Z98.41 Cataract extraction status, right eye; Z85.828 Personal history of other malignant neoplasm of skin; E03.9 Hypothyroidism, unspecified
CPT/HCPCS: 36415; 51701; 74176; 80048; 80053; 81003; 81015; 82248; 82728; 83605; 83615; 84100; 84550; 85007; 85025; 85027; 87040; 87086; 90471; 90682; 93005; 96361; 96365; 96368; 96375; A4216; A4353; G0008; G8978-GP-CJ; G8979-GP-CJ; G8980-GP-CJ; J0692; J1956; J3370; J7050; Q2036

== ENCOUNTER 2017-05-14 23:26 | Observation (INO) | payer MEDICARE ==
[2017-05-15 02:09] VITALS: BMI 20.9
[2017-05-15] MEDS ORDERED: Ondansetron ODT 4 MG TAB PO PRN (05:22)
[2017-05-15] MEDS ORDERED: Acetaminophen 325 MG TAB PO PRN (05:22)
[2017-05-15] MEDS ORDERED: HYDROcodone/Acetaminophen 5/325 mg Tablet PO PRN (05:22)
[2017-05-15] MEDS: Levothyroxine Sodium 25 MCG TAB PO SCH (05:49)
--- NOTE | 2017-05-15 06:07 | HP ---
DATE OF ADMISSION: 05/15/2017 TIME OF SERVICE: 04:15 PRIMARY CARE PHYSICIAN: Dr. Mariola Francis. PRIMARY CLOTHES PRESSER: Dr. Gerber Contreras. CHIEF COMPLAINT: Transfer here for anemia. HISTORY OF PRESENT ILLNESS: Ms. Garay is a pleasant 86-year-old female who presented and transferr ed from [place] for evaluation of anemia. The patient has a known history of chronic kidney disease and anemia of chronic disease and had labs drawn that reportedly showed a creatinine elevated from he r baseline and her hemoglobin lower than normal. She went to the emergency department in [place]. She had repeat labs drawn that showed hemoglobin of 6.4 and creatinine of 6.62, and she was subsequently transferred here for a transfusion. She denies any chest pain or shortness of breath. No dizziness, syncope or presyncope. No fevers or chills. No cough or sputum production or hemoptysis. No GI bleeding. The patient does have a hist ory of colon cancer, status post partial colectomy and colostomy. She denies any blood in her bag. She denies any other current complaints. PAST MEDICAL HISTORY: 1. Colon cancer as above. 2. Chronic kidney disease stage 5. 3. Anemia of chronic renal disease. 4. Peripheral vascular disease. 5. Aortic stenosis. 6. Hypothyroidism. 7. History of deep venous thrombosis/pulmonary embolus. PAST SURGICAL HISTORY: Includes, 1. Colostomy and partial colectomy. 2. Tonsillectomy. 3. IVC filter placement. HOME MEDICATIONS: 1. Aspirin 81 mg daily. 2. KCl 20 mEq daily. 3. Levothyroxine 25 mcg daily. ALLERGIES: No known drug allergies. FAMILY HISTORY: Negative for clotting or bleeding disorder. No immune dysfunction. SOCIAL HISTORY: Negative for habits x3. Her daughter, Shai Briggs is her medical power of attorne y and medical decision maker. The patient has an out of hospital DNR and they wish to be continued DNR in inpatient as well. REVIEW OF SYSTEMS: Patient is sleeping, but arousable. A 10-point review of systems was performed, negative for all systems except as stated as per HPI. PHYSICAL EXAMINATION: VITAL SIGNS: Temperature 99.3, pulse 89, blood pressure 141/67, respiratory 16, satting 95% on room air. GENERAL: She is awake. She is alert. She is oriented x3. She is an elderly white female, who appe ars to be in no acute distress. HEENT: Normocephalic and atraumatic. Pupils equal, round, and react to light bilaterally. Mucous m embranes are moist. She has no visible lesions. No thrush. NECK: Supple, without lymphadenopathy, JVD, or thyromegaly. She has normal carotid upstrokes withou t bruits. LUNGS: Clear. She has no wheezes, no rales, no rhonchi. She has good air movement with symmetrical chest excursion. CARDIOVASCULAR: She has a 4/6 systolic ejection murmur best heard at the right upper sternal border and she has a holosystolic murmur best heard at the right upper sternal border and does radiates into the bilateral axilla. ABDOMEN: Obese. It is nontender, nondistended. Colostomy bag is intact. She does have stool and a ir present. There is no blood. EXTREMITIES: No cyanosis, no clubbing with trace pedal edema. SKIN: Otherwise, warm, moist and well perfused. She has no other rashes or lesions. NEUROLOGIC: Cranial nerves II through XII grossly intact. She has no focal neurologic deficits. No rmal speech. MUSCULOSKELETAL: Normal to inspection. She has no inflamed joints. No palpable effusions. LABORATORY DATA: Sodium 137, potassium 3.3, chloride 100, bicarbonate 24, BUN 79, creatinine 6.62, w hich is above her baseline around 4.2. Glucose 144, calcium 10.3. The liver function completely wit hin normal limits. CBC showed a white count of 9.8, hemoglobin 6.4, hematocrit of 20.9, and platelet count is 362,000. She has a normal white count differential. BNP was 432 and troponin I was 0.06. Looking at her indices, she has a low normal MCV, MCH and MCHC are both low. She has an increased RD W. RADIOGRAPHIC STUDIES: Reports were reviewed. ASSESSMENT AND PLAN: 1. Anemia of chronic renal disease: We will give her 1 unit of packed red blood cells and recheck h er blood counts. 2. Acute kidney injury on chronic kidney disease stage 5: Certainly could be secondary to decreased circulating hemoglobin levels. We will ask Dr. Contreras to see. 3. History of colon cancer, status post partial colectomy. 4. Peripheral vascular disease. 5. History of deep venous thrombosis status post IVC filter placement. No deep venous thrombosis pr ophylaxis. 6. Aortic stenosis with regurgitation. 7. Hypothyroidism. Continue her levothyroxine. The patient to be placed in observation. Should be able to go home later today after transfusion is complete.
[2017-05-15 06:12] LABS: #Eosinphils 0.5 thou/uL (0.0-0.7); #Lymphocytes 1.5 thou/uL (1.20-3.40); #Neutrophils 7.3 thou/uL (1.40-6.50); %Basophils 0.4 % (0.0-1.0); %Eosinophils 4.4 % (0.0-10.0); %Lymphocytes 14.7 % (21.0-51.0); %Monocytes 9.3 % (0.0-10.0); %Neutrophils 71.3 % (42.0-75.0); Hemoglobin 7.6 g/dL (12.0-16.0); Mean Corpuscular HGB CONC 32.1 g/dL (32.0-36.0); Mean Corpuscular Volume 87.1 fl (81.0-99.0); Mean Platelet Volume 6.3 fL (7.4-10.4); Platelet Count 345 thou/uL (130-400); RBC Distribution Width 17.7 % (11.5-14.5); Red Blood Cell (RBC) Count 2.72 mill/uL (4.20-5.40); White Blood Cell (WBC) Count 10.3 thou/uL (4.8-10.8)
[2017-05-15 06:24] LABS: Anion Gap 12 mmol/L (10-20); BUN (Urea Nitrogen) 82 mg/dL (9.8-20.1); Calc. Creatinine Clearance 6 mL/min (70-130); Calcium 9.8 mg/dL (7.8-10.44); Carbon Dioxide 23 mmol/L (23-31); Chloride 103 mmol/L (98-107); Estimated GFR-MDRD 6; Glucose 95 mg/dL (83-110); Magnesium 1.8 mg/dL (1.6-2.6); Potassium 3.3 mmol/L (3.5-5.1); Sodium 135 mmol/L (136-145)
[2017-05-15] MEDS ORDERED: Ondansetron HCl/PF 4 MG/2 ML Vial IVP PRN (07:46)
[2017-05-15] MEDS ORDERED: Milk Of Magnesia 30 ML UDCUP PO PRN (07:46)
[2017-05-15] MEDS ORDERED: Loratadine 10 MG TAB PO PRN (07:46)
[2017-05-15] MEDS ORDERED: Loperamide HCl 2 MG CAP PO PRN (07:46)
[2017-05-15] MEDS ORDERED: Artificial Tears 18 DROP/0.9 ML EA EYE PRN (07:46)
[2017-05-15] MEDS ORDERED: Mag-Al 1200 mg/1200 mg/30 ML UDCUP PO PRN (07:46)
[2017-05-15] MEDS ORDERED: Diabetic Tussin 200 MG/10 ML UDCUP PO PRN (07:46)
[2017-05-15] MEDS ORDERED: Eucerin (Mineral Oil/Petrolatum,White) 30 gm Jar TOP PRN (07:46)
[2017-05-15] MEDS ORDERED: Sodium Chloride 0.65% Nasal 44 ML BOT EA NARE PRN (07:46)
[2017-05-15] MEDS ORDERED: Temazepam 15 MG CAP PO PRN (07:46)
[2017-05-15] MEDS ORDERED: Senokot 8.6 MG TAB PO PRN (07:46)
[2017-05-15] MEDS ORDERED: hydrALAZINE 20 MG/ML VIAL SLOW IVP PRN (07:46)
[2017-05-15] MEDS ORDERED: Chloraseptic Spray 180 ml Bottle PO PRN (07:46)
[2017-05-15] MEDS ORDERED: Epoetin (ESRD) 10,000 UNITS/ML VIAL SC SCH (08:15)
[2017-05-15] MEDS ORDERED: Cefdinir 300 MG CAP PO SCH (09:00)
[2017-05-15] MEDS: Famotidine 20 MG TAB PO SCH (09:32)
[2017-05-15] MEDS: Cyanocobalamin (Vitamin B-12) 1,000 MCG TAB PO SCH (09:32)
[2017-05-15] MEDS: Multivitamin W/ Minerals 1 TAB PO SCH (09:32)
[2017-05-15] MEDS: Sodium Bicarbonate Tab 325 MG TAB PO SCH ×4 (09:32→20:17)
[2017-05-15] MEDS: Folic Acid/Vit B Comp W-C PO SCH (09:32)
[2017-05-15] MEDS: Potassium Chloride 20 MEQ TAB PO SCH (09:33)
[2017-05-15] MEDS: Aspirin 81 mg Enteric Coated Tablet PO SCH (09:33)
[2017-05-15] MEDS: Calcium Carbonate 500 MG ChewTAB PO SCH ×3 (09:33→16:29)
--- NOTE | 2017-05-15 10:55 | PDOC.PN ---
- Subjective Encounter Start Date: 05/15/17 Encounter Start Time: 07:20 -: old records requested/rev pt does not want to go for HD, family member present bedside - Objective Resuscitation Status: Resuscitation Status DNR:Do Not Resuscitate MAR Reviewed: Yes Vital Signs & Weight: Vital Signs (12 hours) Temp Pulse Pulse Resp BP BP Pulse Ox 05/15/17 08:00 98.4 F 102 H 20 137/63 96 05/15/17 05:15 99.7 F H 95 16 145/67 H 05/15/17 02:50 98.8 F 88 16 130/59 L 05/15/17 02:35 98.3 F 91 16 132/60 05/15/17 02:16 98.7 F 85 20 05/15/17 00:45 98.7 F 85 20 145/63 H 98 Weight Weight 125 lb 11.2 oz I&O: 05/14/17 05/15/17 05/16/17 06:59 06:59 06:59 Intake Total 710 Output Total 400 Balance 310 Result Diagrams: 05/15/17 05:33 05/15/17 05:33 Phys Exam - Physical Examination Constitutional: NAD HEENT: PERRLA, moist MMs, sclera anicteric Neck: no JVD, supple Respiratory: no wheezing, no rales, no rhonchi Cardiovascular: RRR, no significant murmur, no rub Gastrointestinal: soft, non-tender, no distention, positive bowel sounds Musculoskeletal: no edema, pulses present Neurological: non-focal, normal sensation Lymphatic: no nodes Psychiatric: normal affect Skin: no rash, normal turgor Dx/Plan (1) Acute worsening of stage 4 chronic kidney disease Code(s): N28.9 - DISORDER OF KIDNEY AND URETER, UNSPECIFIED; N18.4 - CHRONIC KIDNEY DISEASE, STAGE 4 (SEVERE) Status: Acute Comment: Secondary to tumor erosion with obstruction (2) Adenocarcinoma, colon Code(s): C18.9 - MALIGNANT NEOPLASM OF COLON, UNSPECIFIED Status: Chronic Comment: Non-operative mgmt, with diverting colostomy (3) Anemia of renal disease Code(s): D63.1 - ANEMIA IN CHRONIC KIDNEY DISEASE Status: Chronic (4) Anxiety and depression Code(s): F41.9 - ANXIETY DISORDER, UNSPECIFIED; F32.9 - MAJOR DEPRESSIVE DISORDER, SINGLE EPISODE, UNSPECIFIED Status: Chronic (5) Bilateral hydronephrosis Code(s): N13.30 - UNSPECIFIED HYDRONEPHROSIS Status: Chronic (6) CKD (chronic kidney disease) stage 4, GFR 15-29 ml/min Code(s): N18.4 - CHRONIC KIDNEY DISEASE, STAGE 4 (SEVERE) Status: Chronic (7) Colostomy in place Code(s): Z93.3 - COLOSTOMY STATUS Status: Chronic (8) Diverticular disease of left colon Code(s): K57.30 - DVRTCLOS OF LG INT W/O PERFORATION OR ABSCESS W/O BLEEDING Status: Chronic (9) H/O deep venous thrombosis Code(s): Z86.718 - PERSONAL HISTORY OF OTHER VENOUS THROMBOSIS AND EMBOLISM Status: Chronic Comment: (10) Hypothyroidism Code(s): E03.9 - HYPOTHYROIDISM, UNSPECIFIED Status: Chronic Qualifiers: (11) Moderate protein-calorie malnutrition Code(s): E44.0 - MODERATE PROTEIN-CALORIE MALNUTRITION Status: Chronic (12) Physical deconditioning Code(s): R53.81 - OTHER MALAISE Status: Chronic (13) Vitamin D deficiency Code(s): E55.9 - VITAMIN D DEFICIENCY, UNSPECIFIED Status: Chronic - Plan cont current plan of care, plan discussed w/ family * 1 unit transfused * will repeat labs tomorrow * palliative care consult * medication reviewed as below * symptomatic treatment * nephrology following * will discharge tomorrow morning. * dc omnicef, use if true UTI * add procrit and iron * check iron study tomorrow Review of Systems - Review of Systems Constitutional: weakness. negative: fever, chills, sweats, malaise, other ENT: negative: Ear Pain, Ear Discharge, Nose Pain, Nose Discharge, Nose Congestion, Mouth Pain, Mouth Swelling, Throat Pain, Throat Swelling, Other Respiratory: negative: Cough, Dry, Shortness of Breath, Hemoptysis, SOB with Excertion, Pleuritic Pain, Sputum, Wheezing Cardiovascular: negative: chest pain, palpitations, orthopnea, paroxysmal nocturnal dyspnea, edema, light headedness, other Gastrointestinal: negative: Nausea, Vomiting, Abdominal Pain, Diarrhea, Constipation, Melena, Hematochezia, Other Genitourinary: negative: Dysuria, Frequency, Incontinence, Hematuria, Retention , Other Musculoskeletal: negative: Neck Pain, Shoulder Pain, Arm Pain, Back Pain, Hand Pain, Leg Pain, Foot Pain, Other Skin: negative: Rash, Lesions, Igor, Bruising, Other - Medications/Allergies Allergies/Adverse Reactions: Allergies Allergy/AdvReac Type Severity Reaction Status Date / Time No Known Allergies Allergy Verified 05/15/17 01:53 Medications: Current Medications Acetaminophen (Tylenol) 650 mg PO Q4H PRN PRN Reason: Headache/Fever or Pain Hydrocodone Bitart/Acetaminophen ([place] 5/325) 1 tab PO Q4H PRN PRN Reason: Moderate Pain (4-6) Al Hydroxide/Mg Hydroxide (Maalox) 15 ml PO Q4H PRN PRN Reason: Heartburn or Indigestion Artificial Tears (Tears Naturale) 0 drop EA EYE PRN PRN PRN Reason: Dry Eyes Aspirin (Ecotrin) 81 mg PO DAILY [facility] Last Admin: 05/15/17 09:33 Dose: 81 mg Calcium Carbonate (Tums) 1,000 mg PO TID-[facility] Last Admin: 05/15/17 09:33 Dose: 1,000 mg Cyanocobalamin (Vitamin B-12) 1,000 mcg PO DAILY [facility] Last Admin: 05/15/17 09:32 Dose: 1,000 mcg Epoetin Arsenio (Procrit) 10,000 units SC ONE [facility] Stop: 05/15/17 21:00 Last Admin: 05/15/17 10:35 Dose: 10,000 units Famotidine (Pepcid) 20 mg PO DAILY [facility] Last Admin: 05/15/17 09:32 Dose: 20 mg Ferrous Sulfate (Feosol) 325 mg PO QAM-[facility] Guaifenesin (Robitussin Sf) 200 mg PO Q4H PRN PRN Reason: Cough Hydralazine HCl (Apresoline) 10 mg SLOW IVP Q4H PRN PRN Reason: Systolic BP > 180 Iron/Minerals/Multivitamins (Theragran M) 1 tab PO DAILY [facility] Last Admin: 05/15/17 09:32 Dose: 1 tab Levothyroxine Sodium (Synthroid) 25 mcg PO 0600 [facility] Last Admin: 05/15/17 05:49 Dose: 25 mcg Loperamide HCl (Imodium) 2 mg PO PRN PRN PRN Reason: Diarrhea/Loose Stools Loratadine (Claritin) 10 mg PO DAILYPRN PRN PRN Reason: Sinus Symptoms Magnesium Hydroxide (Milk Of Magnesium) 30 ml PO DAILYPRN PRN PRN Reason: Constipation Mineral Oil/White Petrolatum (Eucerin Cream) 0 gm TOP BIDPRN PRN PRN Reason: Dry Skin Ondansetron HCl (Zofran Odt) 4 mg PO Q6H PRN PRN Reason: Nausea/Vomiting Ondansetron HCl (Zofran) 4 mg IVP Q6H PRN PRN Reason: Nausea/Vomiting Phenol (Chloraseptic [place] 180 Ml Bot) 0 ml PO PRN PRN PRN Reason: Sore Throat Potassium Chloride (K-Dur) 20 meq PO QAM[facility] Last Admin: 05/15/17 09:33 Dose: 20 meq Senna (Senokot) 2 tab PO HSPRN PRN PRN Reason: Constipation Sodium Bicarbonate (Bicarbonate, Sodium) 650 mg PO TID [facility] Last Admin: 05/15/17 09:32 Dose: 650 mg Sodium Chloride ([place] Nasal [place] 0.65%) 0 ml EA NARE QIDPRN PRN PRN Reason: Nasal Congestion Sodium Chloride (Flush - Normal Saline) 10 ml IVF Q12HR [facility] Last Admin: 05/15/17 09:40 Dose: 10 ml Sodium Chloride (Flush - Normal Saline) 10 ml IVF PRN PRN PRN Reason: Saline Flush Temazepam (Restoril) 15 mg PO HSPRN PRN PRN Reason: Insomnia Vitamin B Complex/Vit C/Folic Acid (Nephro-Yassine Tablet) 1 tab PO DAILY [facility] Last Admin: 05/15/17 09:32 Dose: 1 tab
[2017-05-15] MEDS ORDERED: diphenhydrAMINE 25 MG CAP PO PRN (19:26)
--- NOTE | 2017-05-15 21:33 | CON ---
DATE OF CONSULTATION: 05/15/2017 NEPHROLOGY CONSULT CONSULTING PHYSICIAN: Dr. Lopez. REASON FOR CONSULT: Acute kidney injury on chronic kidney disease. REASON FOR ADMISSION: Anemia and weakness. HISTORY OF PRESENT ILLNESS: This is an 86-year-old female with history of chronic kidney disease, wh o refused to have dialysis in the past and does not want to have pursued dialysis and will have medic al management for CKD, anemia, came to the hospital with anemia. Patient is on regular follow up wit Dr. Contreras for medical management of chronic kidney disease stage 5 and found to have anemia with iglesia manrique and was sent to the hospital for possible transfusion. Patient denies any nausea, vomiting, no chest pain, palpitation. She remains weak and lethargic. PAST MEDICAL HISTORY: Possible for colon cancer, chronic kidney disease, and anemia of chronic disea se, peripheral vascular disease, aortic stenosis, hypothyroidism, DVT. PAST SURGICAL HISTORY: Colostomy, tonsillectomy, IVC filter. HOME MEDICATIONS: Aspirin, KCl, levothyroxine. ALLERGIES: No known drug allergies. FAMILY HISTORY: No history of kidney disease. SOCIAL HISTORY: No smoking, alcohol, or illicit drug abuse. REVIEW OF SYSTEMS: The following complete review of systems was negative, unless otherwise mentioned in the HPI or below: Constitutional: Weight loss or gain, ability to conduct usual activities. Sk in: Rash, itching. Eyes: Double vision, pain. ENT/Mouth: Nose bleeding, neck stiffness, pain, te nderness. Cardiovascular: Palpitations, dyspnea on exertion, orthopnea. Respiratory: Shortness of breath, wheezing, cough, hemoptysis, fever, or night sweats. Gastrointestinal: Poor appetite, abdo chadd pain, heartburn, nausea, vomiting, constipation, or diarrhea. Genitourinary: Urgency, frequen cy, dysuria, nocturia. Musculoskeletal: Pain, swelling. Neurologic/Psychiatric: Anxiety, depressi on. Allergy/Immunologic: Skin rash, bleeding tendency. PHYSICAL EXAMINATION: GENERAL: This is an elderly female in no apparent distress. VITAL SIGNS: Temperature 98.5, pulse 92, respiratory rate 18, blood pressure 123/57. HEENT: Atraumatic, normocephalic. Oral mucosa is moist. NECK: Supple, no masses. CARDIOVASCULAR: S1, S2 heard. Rate and rhythm regular. RESPIRATORY: Clear. GASTROINTESTINAL: Abdomen is soft. MUSCULOSKELETAL: No tenderness noted. DERMATOLOGIC: No skin rash. NEUROLOGIC: Alert, awake. PSYCHIATRIC: Mood and affect normal. LABORATORY DATA: Hemoglobin is 7.6, potassium is 3.3. ASSESSMENT AND PLAN: 1. Acute kidney injury on chronic kidney disease, stage 5. Renal function with worsening. Family o f the patient does not want to pursue dialysis and they are clear about that. We will continue medic al management. 2. Hypokalemia, replace with caution. 3. Anemia. Agree with transfusion and follow up with Dr. Contreras and Hematology consult. 4. Hyponatremia. 5. Hypertension, stable. 6. Edema, controlled. Family is aware of the situation and does not want to pursue dialysis. We will continue medical rony gement and agree with transfusion. We will follow. Thank you for the consult.
[2017-05-16] MEDS: Levothyroxine Sodium 25 MCG TAB PO SCH (05:30)
[2017-05-16 05:42] LABS: #Basophils 0.1 thou/uL (0.0-0.2); #Eosinphils 0.3 thou/uL (0.0-0.7); #Lymphocytes 1.5 thou/uL (1.20-3.40); #Monocytes 1.1 thou/uL (0.11-0.59); #Neutrophils 10.1 thou/uL (1.40-6.50); %Basophils 0.4 % (0.0-1.0); %Eosinophils 2.2 % (0.0-10.0); %Lymphocytes 11.3 % (21.0-51.0); %Monocytes 8.7 % (0.0-10.0); %Neutrophils 77.4 % (42.0-75.0); Hemoglobin 8.1 g/dL (12.0-16.0); Mean Corpuscular HGB CONC 31.8 g/dL (32.0-36.0); Mean Corpuscular Volume 85.1 fl (81.0-99.0); Mean Platelet Volume 6.6 fL (7.4-10.4); Platelet Count 367 thou/uL (130-400); RBC Distribution Width 17.9 % (11.5-14.5); Red Blood Cell (RBC) Count 2.99 mill/uL (4.20-5.40)
[2017-05-16 05:53] LABS: Iron Binding Capacity, Total 185 mcg/dL (265-497)
[2017-05-16 05:54] LABS: Iron Less than 8 ug/dL (50-170)
[2017-05-16 05:55] LABS: Albumin 2.7 g/dL (3.4-4.8); Anion Gap 13 mmol/L (10-20); BUN (Urea Nitrogen) 82 mg/dL (9.8-20.1); BUN/Creatinine Ratio 12.48; Calc. Creatinine Clearance 5 mL/min (70-130); Calcium 9.4 mg/dL (7.8-10.44); Carbon Dioxide 22 mmol/L (23-31); Chloride 101 mmol/L (98-107); Estimated GFR-MDRD 6; Glucose 110 mg/dL (83-110); Iron 9 ug/dL (50-170); Iron Binding Capacity, Total 183 mcg/dL (265-497); Potassium 3.2 mmol/L (3.5-5.1); Sodium 133 mmol/L (136-145)
[2017-05-16] MEDS ORDERED: Ferrous Sulfate 325 MG TAB PO SCH (08:00)
[2017-05-16 08:04] VITALS: BP 139/68; TEMP 99.2
[2017-05-16] MEDS: Aspirin 81 mg Enteric Coated Tablet PO SCH (08:51)
[2017-05-16] MEDS: Potassium Chloride 20 MEQ TAB PO SCH (08:52)
[2017-05-16] MEDS: Folic Acid/Vit B Comp W-C PO SCH (08:52)
[2017-05-16] MEDS: Sodium Bicarbonate Tab 325 MG TAB PO SCH ×2 (08:53→13:39)
[2017-05-16] MEDS: Calcium Carbonate 500 MG ChewTAB PO SCH ×2 (08:53→13:39)
[2017-05-16] MEDS: Cyanocobalamin (Vitamin B-12) 1,000 MCG TAB PO SCH (08:54)
[2017-05-16] MEDS: Multivitamin W/ Minerals 1 TAB PO SCH (08:54)
[2017-05-16] MEDS: Famotidine 20 MG TAB PO SCH (08:54)
[2017-05-16] MEDS ORDERED: Cefdinir 300 MG CAP PO SCH (09:30)
--- NOTE | 2017-05-16 09:37 | PDOC.PN ---
- Subjective Encounter Start Date: 05/16/17 Encounter Start Time: 07:10 Patient seen and examined. No new complaints. No overnight events - Objective Resuscitation Status: Resuscitation Status DNR:Do Not Resuscitate MAR Reviewed: Yes Vital Signs & Weight: Vital Signs (12 hours) Temp Pulse Resp BP BP Pulse Ox 05/16/17 07:55 99.2 F 107 H 18 139/68 95 05/16/17 02:42 99.4 F 111 H 20 169/76 H 96 05/15/17 23:56 99.4 F 97 16 163/72 H 97 Weight Weight 125 lb 11.2 oz I&O: 05/15/17 05/16/17 05/17/17 06:59 06:59 06:59 Intake Total 710 600 Output Total 400 1450 Balance 310 -850 Result Diagrams: 05/16/17 05:12 05/16/17 05:12 Phys Exam - Physical Examination Constitutional: NAD HEENT: PERRLA, moist MMs, sclera anicteric Neck: no JVD, supple Respiratory: no wheezing, no rales, no rhonchi Cardiovascular: RRR, no significant murmur, no rub Gastrointestinal: soft, non-tender, no distention, positive bowel sounds Musculoskeletal: no edema, pulses present Neurological: non-focal, normal sensation Lymphatic: no nodes Psychiatric: normal affect Skin: no rash, normal turgor Dx/Plan (1) Acute worsening of stage 4 chronic kidney disease Code(s): N28.9 - DISORDER OF KIDNEY AND URETER, UNSPECIFIED; N18.4 - CHRONIC KIDNEY DISEASE, STAGE 4 (SEVERE) Status: Acute Comment: Secondary to tumor erosion with obstruction (2) Adenocarcinoma, colon Code(s): C18.9 - MALIGNANT NEOPLASM OF COLON, UNSPECIFIED Status: Chronic Comment: Non-operative mgmt, with diverting colostomy (3) Anemia of renal disease Code(s): D63.1 - ANEMIA IN CHRONIC KIDNEY DISEASE Status: Chronic (4) Anxiety and depression Code(s): F41.9 - ANXIETY DISORDER, UNSPECIFIED; F32.9 - MAJOR DEPRESSIVE DISORDER, SINGLE EPISODE, UNSPECIFIED Status: Chronic (5) Bilateral hydronephrosis Code(s): N13.30 - UNSPECIFIED HYDRONEPHROSIS Status: Chronic (6) CKD (chronic kidney disease) stage 4, GFR 15-29 ml/min Code(s): N18.4 - CHRONIC KIDNEY DISEASE, STAGE 4 (SEVERE) Status: Chronic (7) Colostomy in place Code(s): Z93.3 - COLOSTOMY STATUS Status: Chronic (8) Diverticular disease of left colon Code(s): K57.30 - DVRTCLOS OF LG INT W/O PERFORATION OR ABSCESS W/O BLEEDING Status: Chronic (9) H/O deep venous thrombosis Code(s): Z86.718 - PERSONAL HISTORY OF OTHER VENOUS THROMBOSIS AND EMBOLISM Status: Chronic Comment: (10) Hypothyroidism Code(s): E03.9 - HYPOTHYROIDISM, UNSPECIFIED Status: Chronic Qualifiers: (11) Moderate protein-calorie malnutrition Code(s): E44.0 - MODERATE PROTEIN-CALORIE MALNUTRITION Status: Chronic (12) Physical deconditioning Code(s): R53.81 - OTHER MALAISE Status: Chronic (13) Vitamin D deficiency Code(s): E55.9 - VITAMIN D DEFICIENCY, UNSPECIFIED Status: Chronic - Plan cont current plan of care, plan discussed w/ family, continue antibiotics * medication reviewed as below * symptomatic treatment * discharge to home * send urine culture and start omnicef Review of Systems - Review of Systems ENT: negative: Ear Pain, Ear Discharge, Nose Pain, Nose Discharge, Nose Congestion, Mouth Pain, Mouth Swelling, Throat Pain, Throat Swelling, Other Respiratory: negative: Cough, Dry, Shortness of Breath, Hemoptysis, SOB with Excertion, Pleuritic Pain, Sputum, Wheezing Cardiovascular: negative: chest pain, palpitations, orthopnea, paroxysmal nocturnal dyspnea, edema, light headedness, other Gastrointestinal: negative: Nausea, Vomiting, Abdominal Pain, Diarrhea, Constipation, Melena, Hematochezia, Other Genitourinary: negative: Dysuria, Frequency, Incontinence, Hematuria, Retention , Other Musculoskeletal: negative: Neck Pain, Shoulder Pain, Arm Pain, Back Pain, Hand Pain, Leg Pain, Foot Pain, Other Skin: negative: Rash, Lesions, Igor, Bruising, Other - Medications/Allergies Allergies/Adverse Reactions: Allergies Allergy/AdvReac Type Severity Reaction Status Date / Time No Known Allergies Allergy Verified 05/15/17 01:53 Medications: Current Medications Acetaminophen (Tylenol) 650 mg PO Q4H PRN PRN Reason: Headache/Fever or Pain Hydrocodone Bitart/Acetaminophen ([place] 5/325) 1 tab PO Q4H PRN PRN Reason: Moderate Pain (4-6) Al Hydroxide/Mg Hydroxide (Maalox) 15 ml PO Q4H PRN PRN Reason: Heartburn or Indigestion Artificial Tears (Tears Naturale) 0 drop EA EYE PRN PRN PRN Reason: Dry Eyes Aspirin (Ecotrin) 81 mg PO DAILY [facility] Last Admin: 05/16/17 08:51 Dose: 81 mg Calcium Carbonate (Tums) 1,000 mg PO TID-[facility] Last Admin: 05/16/17 08:53 Dose: 1,000 mg Cefdinir (Omnicef) 300 mg PO NOW [facility] Stop: 05/16/17 11:00 Cyanocobalamin (Vitamin B-12) 1,000 mcg PO DAILY [facility] Last Admin: 05/16/17 08:54 Dose: 1,000 mcg Diphenhydramine HCl (Benadryl) 25 mg PO Q6H PRN PRN Reason: Itching Last Admin: 05/15/17 20:16 Dose: 25 mg Famotidine (Pepcid) 20 mg PO DAILY [facility] Last Admin: 05/16/17 08:54 Dose: 20 mg Ferrous Sulfate (Feosol) 325 mg PO QAM-[facility] Last Admin: 05/16/17 08:51 Dose: Not Given Guaifenesin (Robitussin Sf) 200 mg PO Q4H PRN PRN Reason: Cough Hydralazine HCl (Apresoline) 10 mg SLOW IVP Q4H PRN PRN Reason: Systolic BP > 180 Iron/Minerals/Multivitamins (Theragran M) 1 tab PO DAILY [facility] Last Admin: 05/16/17 08:54 Dose: 1 tab Levothyroxine Sodium (Synthroid) 25 mcg PO 0600 [facility] Last Admin: 05/16/17 05:30 Dose: 25 mcg Loperamide HCl (Imodium) 2 mg PO PRN PRN PRN Reason: Diarrhea/Loose Stools Loratadine (Claritin) 10 mg PO DAILYPRN PRN PRN Reason: Sinus Symptoms Magnesium Hydroxide (Milk Of Magnesium) 30 ml PO DAILYPRN PRN PRN Reason: Constipation Mineral Oil/White Petrolatum (Eucerin Cream) 0 gm TOP BIDPRN PRN PRN Reason: Dry Skin Ondansetron HCl (Zofran Odt) 4 mg PO Q6H PRN PRN Reason: Nausea/Vomiting Ondansetron HCl (Zofran) 4 mg IVP Q6H PRN PRN Reason: Nausea/Vomiting Phenol (Chloraseptic [place] 180 Ml Bot) 0 ml PO PRN PRN PRN Reason: Sore Throat Potassium Chloride (K-Dur) 20 meq PO QAM-[facility] Last Admin: 05/16/17 08:52 Dose: 20 meq Senna (Senokot) 2 tab PO HSPRN PRN PRN Reason: Constipation Sodium Bicarbonate (Bicarbonate, Sodium) 650 mg PO TID [facility] Last Admin: 05/16/17 08:53 Dose: 650 mg Sodium Chloride ([place] Nasal [place] 0.65%) 0 ml EA NARE QIDPRN PRN PRN Reason: Nasal Congestion Sodium Chloride (Flush - Normal Saline) 10 ml IVF Q12HR [facility] Last Admin: 05/15/17 20:18 Dose: 10 ml Sodium Chloride (Flush - Normal Saline) 10 ml IVF PRN PRN PRN Reason: Saline Flush Temazepam (Restoril) 15 mg PO HSPRN PRN PRN Reason: Insomnia Vitamin B Complex/Vit C/Folic Acid (Nephro-Yassine Tablet) 1 tab PO DAILY [facility] Last Admin: 05/16/17 08:52 Dose: 1 tab
--- NOTE | 2017-05-16 10:41 | DIS ---
DATE OF ADMISSION: 05/14/2017 DATE OF DISCHARGE: 05/16/2017 PRIMARY CARE PHYSICIAN: [facility] call admission. DISCHARGE DISPOSITION: Home. PRIMARY DISCHARGE DIAGNOSES: Acute on chronic kidney failure, baseline chronic kidney disease stage 4, symptomatic anemia, status post transfusion. SECONDARY DISCHARGE DIAGNOSES: Colon adenocarcinoma, anemia of renal disease, anxiety and depression , bilateral hydronephrosis, chronic kidney disease stage 4, colostomy in place, diverticular disease of colon, history of deep venous thrombosis with IVC filter, hypothyroidism, protein calorie malnutri tion moderate, physical deconditioning, vitamin D deficiency. PRIMARY PROCEDURE/OPERATION: None. RADIOLOGICAL INVESTIGATION: None. SIGNIFICANT LABORATORY DATA: WBC 13.0, hemoglobin 8.1, platelets 367. Sodium 133, potassium 3.2, BU N 82, creatinine 6.57, and calcium 9.4. Iron 9, TIBC 183, ferritin 380.5, albumin 2.7, and PTH 53.8. Stool for guaiac negative. DISCHARGE MEDICATIONS: Tylenol 500 mg 1 or 2 tablets q.6 hourly p.r.n., aspirin 81 mg p.o. daily, Tu ms 1000 mg p.o. t.i.d., Omnicef 300 mg p.o. daily, vitamin D3 2000 units p.o. daily, vitamin B12 1000 mcg p.o. daily, Benadryl 25 mg q.6 hourly p.r.n., Synthroid 25 mcg p.o. daily, multivitamin 1 tablet p.o. daily, potassium chloride 20 mEq p.o. daily, sodium bicarbonate 650 mg p.o. t.i.d. CONTRAINDICATIONS: None. CODE STATUS: DNR. INPATIENT DIRECTOR DIGITAL ANALYTICS: Dr. Contreras was consulted while in hospital. TEST RESULTS PENDING ON DISCHARGE: None. ALLERGIES: No known drug allergies. DISCHARGE PLAN: Post hospital, patient will follow up with primary care physician. HOSPITAL COURSE: An 86-year-old female who initially went to [facility] where she was complaining of dizziness, weakness, and fatigability. Her hemoglobin was below 7 there and that is why they transferred her here for blood transfusion. We gave her 1 unit of blood and af ter that her hemoglobin improved to 8.1 on discharge. We also gave her Procrit. Her anemia is anemi a of chronic disease. This patient has recurrent UTI and she was having very low grade fever and jeremie kocytosis that is why on discharge, we started Omnicef. The patient will follow up with primary care physician for followup on urine culture result. At this point, we are starting Omnicef 300 mg p.o. daily. This patient does not want to go for dialysis. While in hospital, Nephrology was following. This patient's long-term prognosis is very poor. We consulted palliative care while in hospital as well. This patient is a very high risk for recurrent admission. This patient family member advised to follow up with Urology and make appointment upon discharge. The patient is seen and examined at bedside today. Plan of care discussed with the patient's family member, patient is hemodynamically stable for discharge. Please see my progress note from today for further details.
--- NOTE | 2017-05-16 11:04 | PRG ---
Patient Name: NANCY HERBERT Date of service: 05/16/2017 Subjective: Patient was seen and examined at bedside and overnight events noted. Patient denies any shortness of breath or chest pain or palpitation. No history of nausea or vomiting or diarrhea or fever or chills or cramps. Objective: General: This is a well-developed, well-built elderly female in no apparent distress. Vital signs: Temperature 98.2, pulse 107, respiratory rate 20, blood pressure 113/68. HEENT: Atraumatic, normocephalic. Oral mucosa is moist. Neck: Supple. Cardiovascular: S1 S2 heard. Rate and rhythm regular. Respiratory: Clear to auscultation. Gastrointestinal: Abdomen is soft. Musculoskeletal: No tenderness. No edema. Dermatologic: No skin rash. Neurologic: Alert and awake and oriented X3. No focal neurologic deficits. Moving all the extremit ies. Psychiatric: Mood and affect normal. LABORATORY DATA: Potassium is 3.2, BUN 82, creatinine 6.5, hemoglobin is 8.1. ASSESSMENT AND PLAN: 1. Acute kidney injury on chronic kidney disease stage 5. Continue medical management. Family, terese elise refused to have dialysis. 2. Anemia, status post transfusion, monitor. Continue Epogen. Follow up with Hematology/Oncology. 3. Hypokalemia, replace with caution. 4. Hyponatremia. 5. Hypertension. Follow up with Dr. Contreras in a week.
== END 2017-05-16 14:07 | disposition home or self-care (01) ==
LOC: ERS 23:26 → ONC 23:47
PROVIDERS: ADMIT Internal Medicine Infectious Disease; ATTEND Internal Medicine Infectious Disease
DX: N18.5 Chronic kidney disease, stage 5 (principal); D63.1 Anemia in chronic kidney disease; C18.9 Malignant neoplasm of colon, unspecified; I73.9 Peripheral vascular disease, unspecified; I35.0 Nonrheumatic aortic (valve) stenosis; E03.9 Hypothyroidism, unspecified; F32.9 Major depressive disorder, single episode, unspecified; F41.9 Anxiety disorder, unspecified; E55.9 Vitamin D deficiency, unspecified; E44.0 Moderate protein-calorie malnutrition; Z68.20 Body mass index [BMI] 20.0-20.9, adult; Z86.711 Personal history of pulmonary embolism; Z79.82 Long term (current) use of aspirin; Z79.899 Other long term (current) drug therapy; Z98.890 Other specified postprocedural states
CPT/HCPCS: 36430; 80048; 80069; 82274; 82728; 83540; 83550; 83735; 83970; 85025 ×2; 86850; 86900; 86901; 86920; 87077; 87086; 87184; 87186; 97139 ×2; 99285; G0378; P9016; Q4081; 36415; A4216